=== PATIENT | male | born 1940 | race Caucasian/White ===

== ENCOUNTER 2018-04-07 10:11 | Outpatient (CLI) | payer OTHER | END 2018-04-07 17:33 | disposition home or self-care (01) | LOC: NUCLEAR 10:11 | DX: I20.1 Angina pectoris with documented spasm (principal) | CPT/HCPCS: 78452; 93017; A9500 ==

== ENCOUNTER 2018-04-27 11:16 | Outpatient (CLI) | payer OTHER | END 2018-04-27 11:32 | disposition home or self-care (01) | LOC: NUCLEAR 11:16 | DX: E11.65 Type 2 diabetes mellitus with hyperglycemia (principal); I25.701 Atherosclerosis of coronary artery bypass graft(s), unspecified, with angina pectoris with documented spasm; I63.8 Other cerebral infarction ==